=== PATIENT | male | born 1945 | race Caucasian/White ===

== ENCOUNTER 2017-04-26 13:00 | Outpatient (CLI) | payer MEDICARE ==
--- NOTE | 2017-04-26 14:04 | RAD ---
CHEST 2 VIEWS: Date: 04/26/17 HISTORY: Dyspnea. COMPARISON: 07/24/14. FINDINGS: Cardiac silhouette and pulmonary vasculature are unremarkable. Mediastinum is midline. There is no c onfluent air space consolidation, pneumothorax, or pleural fluid evident. IMPRESSION: No active cardiopulmonary abnormalities are demonstrated. POS: [facility]
== END 2017-04-26 13:01 | disposition home or self-care (01) ==
LOC: RAD 13:00
PROVIDERS: ATTEND Internal Medicine Pulmonary Disease
DX: R06.00 Dyspnea, unspecified (principal)
CPT/HCPCS: 71020

== ENCOUNTER 2017-06-06 20:30 | Outpatient (CLI) | payer MEDICARE | END 2017-06-06 20:31 | disposition home or self-care (01) | LOC: SLEEPLAB 20:30 | PROVIDERS: ATTEND Internal Medicine Critical Care Medicine | DX: G47.33 Obstructive sleep apnea (adult) (pediatric) (principal); G47.61 Periodic limb movement disorder; D75.1 Secondary polycythemia | CPT/HCPCS: 95811 ==

== ENCOUNTER 2017-07-27 12:40 | Emergency (ER) | payer MEDICARE ==
[~2017-07-27 12:40] MED LIST: Iopamidol 370 76% 100 ML VIAL ONE
[2017-07-27] MEDS ORDERED: Ondansetron HCl/PF 4 MG/2 ML Vial ONE (13:26)
[2017-07-27] MEDS ORDERED: Morphine 4 MG/ML Carpuject ONE (13:26)
[2017-07-27] MEDS ORDERED: Ketorolac Tromethamine 30 MG/ML VIAL ONE (13:38)
--- NOTE | 2017-07-27 13:40 | CT ---
NONCONTRAST HEAD CT: HISTORY: Syncope. COMPARISON: None. TECHNIQUE: A noncontrast head CT is performed from the skull base to the skull vertex. FINDINGS: No parenchymal hemorrhage. No extraaxial hematoma. No midline shift. The basilar cisterns are glez nt. Brain volume is age appropriate. Cortical mcneil white matter differentiation is preserved. The ventricles and sulci are patent and symmetric. The calvarium is intact. Adequate aeration of the mastoid air cells. Mild mucosal thickening of the left ethmoid air cells. IMPRESSION: No acute intracranial process. POS: [facility]
--- NOTE | 2017-07-27 13:49 | RAD ---
PORTABLE AP CHEST X-RAY: 07/27/2017 HISTORY: Syncopal episode. The patient fell and had positive loss of consciousness. COMPARISON: 04/26/2017 FINDINGS: The cardiac silhouette and pulmonary vasculature are within normal limits. The lungs are clear. Ther e has been no interval change when compared to the prior exam. IMPRESSION: No acute cardiopulmonary process. POS: [facility]
[2017-07-27 13:50] LABS: #Basophils 0.1 thou/uL (0.0-0.2); #Eosinphils 0.3 thou/uL (0.0-0.7); #Monocytes 0.6 thou/uL (0.11-0.59); #Neutrophils 8.2 thou/uL (1.40-6.50); %Basophils 0.8 % (0.0-1.0); %Eosinophils 2.5 % (0.0-10.0); %Lymphocytes 9.3 % (21.0-51.0); %Monocytes 6.3 % (0.0-10.0); Hemoglobin 13.8 g/dL (14.0-18.0); Mean Corpuscular HGB CONC 32.5 g/dL (32.0-36.0); Mean Corpuscular Hemoglobin 26.3 pg (27.0-31.0); Mean Corpuscular Volume 81.1 fl (80.0-94.0); Platelet Count 165 thou/uL (130-400); RBC Distribution Width 15.2 % (11.5-14.5); Red Blood Cell (RBC) Count 5.25 mill/uL (4.70-6.10); White Blood Cell (WBC) Count 10.2 thou/uL (4.8-10.8)
--- NOTE | 2017-07-27 13:56 | CT ---
NONCONTRAST CT CERVICAL SPINE: Date: 07-27-17 History: Patient with syncopal episode after procedure today. Patient also recently woke from a nap a nd fell. Positive LOC and hit head on edge of bed. Cervical collar in place. Technique: Contiguous axial CT images are obtained through the cervical spine from the skull base to the level of the T2 vertebral body. Sagittal and coronal reformat images are provided. FINDINGS: Prominent anterior bridging osteophytes are seen at the C4-5 and C5-6 levels. There is fusion of the right sided posterior elements at the C2-3 and C4-5 levels. Multilevel facet degenerative changes are present. Posterior osteophyte formation as well as uncinate process hypertrophy are seen at multiple levels. T here is mild to moderate bilateral neural foraminal narrowing at C2-3 level, mild to moderate right a nd severe left sided neural foraminal narrowing at C3-4, mild right sided neural foraminal narrowing at C4-5, moderate to severe right sided neural foraminal narrowing at the C5-6 and severe bilateral n eural foraminal narrowing at the C6-7 levels related to the degenerative changes and bony encroachmen t on the neural foramina. No fracture or subluxation is seen involving the cervical spine. There is mild straightening of the n ormal cervical lordotic curvature. Prevertebral soft tissues are within normal limits. Vascular calcifications are seen in the carotid a rteries. There are several calcifications seen within the right carotid gland, likely related to prior infecti ous or inflammatory process. The lung apices are clear with mild chronic lung changes present. IMPRESSION: 1. Multilevel degenerative changes in the cervical spine with varying degrees of neural foraminal nara rowing. 2. No fracture or subluxation involving the cervical spine. 3. Fusion of the posterior elements on the right at the C2-3 and C4-5 levels. POS: [facility]
[2017-07-27 14:07] LABS: ALT (SGPT) 32 U/L (8-55); AST (SGOT) 21 U/L (5-34); Albumin 3.7 g/dL (3.4-4.8); Alkaline Phosphatase 64 U/L (40-150); Anion Gap 13 mmol/L (10-20); BUN (Urea Nitrogen) 24 mg/dL (8.4-25.7); Bilirubin, Total 0.9 mg/dL (0.2-1.2); Calc. Creatinine Clearance 0 mL/min (70-130); Calcium 9.1 mg/dL (7.8-10.44); Carbon Dioxide 24 mmol/L (23-31); Chloride 105 mmol/L (98-107); Estimated GFR-MDRD 49; Globulin 2.5 g/dL (2.4-3.5); Glucose 141 mg/dL (83-110); Potassium 3.8 mmol/L (3.5-5.1); Protein, Total 6.2 g/dL (5.8-8.1); Sodium 138 mmol/L (136-145)
[2017-07-27 14:09] LABS: CKMB 3.1 ng/mL (0-6.6); Troponin I 0.019 ng/mL (< 0.028)
--- NOTE | 2017-07-27 14:57 | CT ---
CTA CHEST AND 3D VOLUME RENDERING: CLINICAL HISTORY: Syncope, elevated D-dimer. FINDINGS: There is no obvious filling defect of the contrast-opacified pulmonary arterial system. The thoracic aorta is nonaneurysmal with minimal vascular calcification. Scattered mild ground-glass opacities of each lung are present, nonspecific. There is no pleural eff usion or pneumothorax. Incidental note of cholelithiasis, incompletely evaluated. There is osseous degenerative change. IMPRESSION: 1. No evidence of pulmonary embolus. 2. Mild scattered nonspecific ground-glass opacities. Findings could relate to an area of mild alve olar opacification from atypical infection/inflammation or alternatively component of underlying fibr osis. Recommend clinical correlation. 3. Partial visualization of cholelithiasis. POS: [facility]
== END 2017-07-27 15:40 | disposition home or self-care (01) ==
LOC: SCSER 12:40
DX: R55 Syncope and collapse (principal); I10 Essential (primary) hypertension; Z87.442 Personal history of urinary calculi; Z79.82 Long term (current) use of aspirin; Z79.899 Other long term (current) drug therapy
CPT/HCPCS: 36415; 70450; 71045; 71275; 72125; 80053; 82553; 84484; 85025; 85379; 93005; 96361; 96374; 96375; J1885; J2270; J2405

== ENCOUNTER 2017-12-18 14:16 | Outpatient (CLI) | payer MEDICARE ==
[~2017-12-18 14:16] MED LIST changes: +Gadobenate Dimeglumine 529 MG/1 ML (20ML VIAL) ONE; -Iopamidol 370 76% 100 ML VIAL ONE
--- NOTE | 2017-12-18 17:10 | MRI ---
MRI CERVICAL SPINE WITHOUT CONTRAST: Date: 12/18/17 Multiplanar, multisequential imaging of cervical spine obtained. INDICATION: Neck pain. Cervical radiculopathy with bilateral arm pain. Comparison made to MRI of the cervical spine from April 2010. FINDINGS: There are moderate degenerative changes of the cervical spine. Loss of disc space at all levels with anterior osteophytes prominent at C4-5 and C5-6. There is mild retrolisthesis at C6-7 measured at deepthi roximately 3-4 mm, stable from the prior exam of 2009. At C2-3, mild spondylosis effacing the anterior subarachnoid space. No cord impingement. At C3-4, disc bulge and spondylosis is present, more pronounced to the left where there is asymmetric spondylytic change impinging on the anterior cord on the left and encroaching into the left foramina . Similar findings were present in 2009. At C4-5, disc bulge and spondylosis abut the anterior cord. There is a central disc osteophyte comple x impinging on and mildly flattening the anterior cord. Similar findings were also noted at this leve l in 2010. There is right foraminal narrowing due to facet and uncinate hypertrophy. At C5-6, disc bulge and spondylosis abuts and mildly indents the anterior cord. Bilateral foraminal n arrowing, more severe on the right, due to facet and uncinate hypertrophy. At C6-7, mild retrolisthesis with diffuse disc bulge and spondylosis as described above. This impinge s on the cord producing slight flattening of the anterior cord. Bilateral foraminal stenosis secondar y to facet and uncinate hypertrophy. Cord signal is maintained with no evidence of myelomalacia. IMPRESSION: Multilevel degenerative disc changes with cervical canal stenosis C3 through C7, with findings at eac h level described above. POS: [facility]
--- NOTE | 2017-12-18 17:24 | MRI ---
MRI LUMBAR SPINE WITHOUT CONTRAST: 12/18/17 Multiplanar and multisequential imaging lumbar spine obtained. INDICATIONS: Lumbar radiculopathy. Prior lumbar surgery. Radiation to left leg. Comparison made to MRI of lumbar spine of 09/05/16. FINDINGS: The lumbar vertebrae maintain height and alignment. Degenerative disc changes seen at all levels with loss of disc space throughout the lumbar spine. Prominent osteophytes are seen anteriorly. Degenerat elaine end plate changes are noted. Disc bulge/protrusion at multiple levels as described below. Similar findings were noted on the MRI of lumbar spine from 2017. At T12-L1, mild disc bulge flattens the thecal sac. Mild facet arthrosis without significant central canal or foraminal stenosis. At L1-2, mild disc bulge and facet arthrosis without significant central canal or foraminal stenosis. At L2-3, broad based disc protrusion, more pronounced centrally with slight inferior extension of dis c material. Has a similar appearance to 2017. The inferiorly migrated disc just inferior to this disc space measures 1.0 cm AP dimension in the axial plane. This broad based protrusion flattens the thec al sac and is combined with mild facet hypertrophy resulting in moderate central canal stenosis. Mild foraminal encroachment due to the broad based disc bulge and facet hypertrophy. Disc osteophyte comp lópez projects laterally to the left. At L3-4, broad based disc bulge flattens the thecal sac. Facet and ligamentous hypertrophy. Moderate central canal stenosis. At L4-5, diffuse disc bugle/protrusion with evidence of annular fissure within the disc. Facet hypert rophy. Moderate central canal stenosis. Bilateral foraminal narrowing due to diffuse disc bulge and f acet hypertrophy. At L5-S1, broad based disc protrusion with annular fissure. Facet hypertrophy. Moderate central canal stenosis. Bilateral foraminal stenosis. IMPRESSION: Broad based disc protrusions at all levels from L2 to L5-S1 which have a similar appearance to the pr ior MRI of 2017. Central canal and foraminal encroachment at these levels as described above. POS: [facility]
== END 2017-12-18 14:17 | disposition home or self-care (01) ==
LOC: TBSIIMAG 14:16
PROVIDERS: ATTEND Neurological Surgery
DX: M48.02 Spinal stenosis, cervical region (principal); M47.22 Other spondylosis with radiculopathy, cervical region; M51.17 Intervertebral disc disorders with radiculopathy, lumbosacral region
CPT/HCPCS: 72141; 72158; 82565; A9579

== ENCOUNTER 2018-01-30 09:10 | Outpatient (CLI) | payer MEDICARE ==
[2018-01-30 10:51] LABS: Hemoglobin 15.8 g/dL (14.0-18.0); Mean Corpuscular HGB CONC 31.8 g/dL (32.0-36.0); Mean Corpuscular Hemoglobin 27.4 pg (27.0-31.0); Mean Corpuscular Volume 86.1 fL (78.0-98.0); Mean Platelet Volume 8.5 fL (7.4-10.4); Platelet Count 188 thou/uL (130-400); RBC Distribution Width 14.8 % (11.5-14.5); Red Blood Cell (RBC) Count 5.79 mill/uL (4.70-6.10); White Blood Cell (WBC) Count 6.4 thou/uL (4.8-10.8)
[2018-01-30 11:18] LABS: Anion Gap 11 mmol/L (10-20); BUN (Urea Nitrogen) 12 mg/dL (8.4-25.7); Calc. Creatinine Clearance 0 mL/min (70-130); Calcium 9.6 mg/dL (7.8-10.44); Carbon Dioxide 27 mmol/L (23-31); Chloride 104 mmol/L (98-107); Estimated GFR-MDRD 65; Glucose 90 mg/dL (83-110); Potassium 4.7 mmol/L (3.5-5.1); Sodium 137 mmol/L (136-145)
--- NOTE | 2018-01-31 13:58 | EKG ---
Test Reason : Blood Pressure : / mmHG Vent. Rate : 064 BPM Atrial Rate : 064 BPM P-R Int : 202 ms QRS Dur : 100 ms QT Int : 368 ms P-R-T Axes : 047 021 047 degrees QTc Int : 379 ms Normal sinus rhythm Possible Anterior infarct , age undetermined Abnormal ECG Confirmed by MARIA ANTONIA BENOIT ([id number]) on 01/31/2018 1:57:27 PM Referred By: ROM Confirmed By:MARIA ANTONIA BENOIT
== END 2018-01-30 09:11 | disposition home or self-care (01) ==
LOC: LABBT 09:10
PROVIDERS: ATTEND Neurological Surgery
DX: Z01.818 Encounter for other preprocedural examination (principal); M51.16 Intervertebral disc disorders with radiculopathy, lumbar region
CPT/HCPCS: 80048; 85027; 93005; 93010

== ENCOUNTER 2018-05-13 19:19 | Emergency (ER) | payer MEDICARE ==
[2018-05-13 20:34] LABS: #Basophils 0.1 thou/uL (0.0-0.2); #Eosinphils 1.1 thou/uL (0.0-0.7); #Lymphocytes 1.7 thou/uL (1.20-3.40); #Monocytes 0.6 thou/uL (0.11-0.59); #Neutrophils 3.2 thou/uL (1.40-6.50); %Basophils 1.3 % (0.0-1.0); %Eosinophils 16.7 % (0.0-10.0); %Lymphocytes 25.1 % (21.0-51.0); %Monocytes 8.2 % (0.0-10.0); %Neutrophils 48.7 % (42.0-75.0); Hemoglobin 14.7 g/dL (14.0-18.0); Mean Corpuscular HGB CONC 31.5 g/dL (32.0-36.0); Mean Corpuscular Hemoglobin 25.1 pg (27.0-31.0); Mean Corpuscular Volume 79.8 fL (78.0-98.0); Mean Platelet Volume 10.7 fL (7.4-10.4); Platelet Count 164 thou/uL (130-400); Red Blood Cell (RBC) Count 5.85 mill/uL (4.70-6.10); White Blood Cell (WBC) Count 6.6 thou/uL (4.8-10.8)
[2018-05-13 20:47] LABS: ALT (SGPT) 36 U/L (8-55); AST (SGOT) 30 U/L (5-34); Albumin 4.5 g/dL (3.4-4.8); Alkaline Phosphatase 75 U/L (40-150); Anion Gap 16 mmol/L (10-20); BUN (Urea Nitrogen) 14 mg/dL (8.4-25.7); Bilirubin, Total 0.7 mg/dL (0.2-1.2); Calc. Creatinine Clearance 0 mL/min (70-130); Calcium 9.5 mg/dL (7.8-10.44); Carbon Dioxide 24 mmol/L (23-31); Chloride 105 mmol/L (98-107); Estimated GFR-MDRD 68; Glucose 104 mg/dL (83-110); Lipase 24 U/L (8-78); Potassium 4.5 mmol/L (3.5-5.1); Protein, Total 7.5 g/dL (5.8-8.1); Sodium 140 mmol/L (136-145)
--- NOTE | 2018-05-13 22:49 | CT ---
CT ABDOMEN AND PELVIS WITH IV CONTRAST: 05/13/2018 HISTORY: Left lower quadrant abdominal pain for four days. Blood in stool and dark stools. COMPARISON: 09/20/2016 FINDINGS: Minimal bibasilar atelectasis is present. An increased density focus is again seen within the gallbladder, likely related to cholelithiasis. T here are stable, irregular calcific densities seen within the left hepatic lobe, stable from prior ex am, as well as a study on 12/19/2014. There is an approximately 3 mm, nonobstructing calculus, mid portion left kidney. Stable subcentimet er, xqc-[id number]-hf-characterize, hypodense lesions are also again seen in each kidney. There is a stab le cyst in the inferior pole right kidney. The spleen, pancreas, bilateral adrenal glands, and partially distended urinary bladder demonstrate a normal CT appearance. There is colonic diverticulosis noted. The opacified small bowel is normal in caliber. The appendix is visualized and is normal in caliber. The prostate gland is heterogeneous and enlarged in transverse dimensions, measuring 5.5 cm. Again noted is evidence of osteonecrosis involving the femoral heads bilaterally. There has been no significant interval change from the prior exam. IMPRESSION: 1. No acute findings in the abdomen or pelvis. 2. Cholelithiasis. 3. Nonobstructing left renal calculus with subcentimeter, vkv-[id number]-hm-characterize, hypodense lesio ns in each kidney, as well as stable right renal cysts. 4. Colonic diverticulosis with enumerable colonic diverticula in the descending and sigmoid colon. 5. No CT evidence of appendicitis. 6. Prominent vascular calcifications in the abdominal aorta and iliac arteries. 7. Enlargement of the prostate gland, which is heterogeneous in appearance. 8. Stable osteonecrosis, bilateral femoral heads. 9. Prominent degenerative changes in the lumbar spine with posterior osteophyte formation seen at mu ltiple levels with moderate to severe degrees of central spinal canal narrowing. POS: [facility]
== END 2018-05-13 23:10 | disposition home or self-care (01) ==
LOC: SCSER 19:19
DX: K92.1 Melena (principal); I25.10 Atherosclerotic heart disease of native coronary artery without angina pectoris; I10 Essential (primary) hypertension; Z87.442 Personal history of urinary calculi
CPT/HCPCS: 36415; 74177; 80053; 83605; 83690; 85025

== ENCOUNTER 2018-07-25 05:38 | Outpatient (CLI) | payer MEDICARE ==
[2018-07-25 09:38] LABS: #Basophils 0.1 thou/uL (0.0-0.2); #Eosinphils 1.3 thou/uL (0.0-0.7); #Lymphocytes 1.6 thou/uL (1.20-3.40); #Monocytes 0.7 thou/uL (0.11-0.59); #Neutrophils 2.5 thou/uL (1.40-6.50); %Basophils 1.6 % (0.0-1.0); %Eosinophils 21.2 % (0.0-10.0); %Lymphocytes 25.9 % (21.0-51.0); %Monocytes 10.6 % (0.0-10.0); %Neutrophils 40.6 % (42.0-75.0); Hemoglobin 15.5 g/dL (14.0-18.0); Mean Corpuscular HGB CONC 31.9 g/dL (32.0-36.0); Mean Corpuscular Hemoglobin 26.5 pg (27.0-31.0); Mean Corpuscular Volume 83.3 fL (78.0-98.0); Mean Platelet Volume 8.9 fL (7.4-10.4); Platelet Count 206 thou/uL (130-400); RBC Distribution Width 16.8 % (11.5-14.5); Red Blood Cell (RBC) Count 5.84 mill/uL (4.70-6.10); White Blood Cell (WBC) Count 6.3 thou/uL (4.8-10.8)
[2018-07-25 09:44] LABS: Bilirubin Negative (Negative); Blood, Urine Negative (Negative); Clarity CLEAR (Clear); Glucose, Urine (Dipstick) Negative (Negative); Leukocyte Negative (Negative); Nitrite Negative (Negative); Protein, Urine (Dipstick) Negative (Neg-Trace); Specific Gravity, Urine 1.021 (1.002-1.036); Urobilinogen 0.2 mg/dL (0.2-1.0); pH, Urine 5.5 (5.0-9.0)
[2018-07-25 09:46] LABS: Bacteria/HPF None Seen HPF (None Seen); Hyaline Casts/LPF 0-3 HYALINE CAST LPF (0-3 Hyaline); INR-International Normal Ratio 1.1; PTT 29.9 SEC (22.9-36.1); Prothrombin Time 13.9 SEC (12.0-14.7); Squamous Epithelial None Seen HPF (0-3); WBC/HPF 0-3 HPF (0-3)
[2018-07-25 09:57] LABS: Anion Gap 14 mmol/L (10-20); BUN (Urea Nitrogen) 13 mg/dL (8.4-25.7); Calc. Creatinine Clearance 0 mL/min (70-130); Calcium 9.5 mg/dL (7.8-10.44); Carbon Dioxide 23 mmol/L (23-31); Chloride 107 mmol/L (98-107); Estimated GFR-MDRD 72; Glucose 94 mg/dL (83-110); Sodium 140 mmol/L (136-145)
== END 2018-07-25 05:39 | disposition home or self-care (01) ==
LOC: LABBT 05:38
PROVIDERS: ATTEND Orthopaedic Surgery
DX: Z01.818 Encounter for other preprocedural examination (principal); M16.11 Unilateral primary osteoarthritis, right hip
CPT/HCPCS: 80048; 81001; 85025; 85610; 85730; 87081; 93005; 93010

== ENCOUNTER 2018-07-25 08:45 | Inpatient (IN) | payer MEDICARE ==
[2018-07-25 09:02] VITALS: BMI 29.0
--- NOTE | 2018-08-01 14:40 | HP ---
HISTORY OF PRESENT ILLNESS: The patient is a 73-year-old male with a long history of progressive pain in his right hip and groin, which has become worse over the past years, especially the past six months. He has had persistent symptoms despite rest, restriction of activities, anti-inflammatory medications and lifestyle adjustments. The pain is now interfering with day-to-day activities including walking, getting dressed and sleeping. PAST MEDICAL HISTORY: The patient has a history of chronic back problems and has been told by Dr. Anderson he may need surgery. His hip is bothering him more. He has obtained partial relief from injections of his back by Dr. Byrnes. He also has a history of hyperlipidemia, hypertension, prostatitis, and sleep apnea. CURRENT MEDICATIONS: Include: 1. Fish oil. 2. Glucosamine. 3. Saw palmetto. 4. Probiotic. 5. Testosterone. 6. Melatonin. 7. Multivitamins. 8. Aspirin 81 mg daily. 9. Flomax. 10. Losartan. 11. Lipitor. He has been seen and cleared for surgery by . ALLERGIES: HE HAS NO KNOWN ALLERGIES. FAMILY HISTORY: Otherwise unremarkable. SOCIAL HISTORY: Otherwise unremarkable. REVIEW OF SYSTEMS: Otherwise unremarkable. PHYSICAL EXAMINATION: GENERAL: Reveals a healthy male. HEENT: Unremarkable. NECK: Supple. CHEST: Clear. HEART: Regular rate and rhythm. ABDOMEN: Soft, nontender. RECTAL: Deferred. GENITAL: Deferred. EXTREMITIES: Pertinent findings are related to right hip. There is tenderness in the anterior and posterior hip. Leg lengths were equal. There is decreased range of motion of the right hip and groin pain with internal rotation of the hip, which reproduces his symptoms. There is a right antalgic gait. NEUROVASCULAR: Intact except for subjective numbness in the medial aspect of his great toe. Straight leg raising causes back and buttock pain on the right at 90 degrees. DIAGNOSTIC STUDIES: X-rays of the right hip reveals severe degenerative changes with minimal joint space remaining and definite progression from previous x-rays. IMPRESSION: 1. Degenerative arthritis, right hip. 2. Lumbar spondylosis. 3. History of hypertension. 4. History of sleep apnea. PLAN: Right total hip replacement. The nature of the surgery, length of recovery, and potential complications such as infection, loss of motion, incomplete relief, neurovascular injury, thromboembolic phenomenon, leg length discrepancy, possible transfusion, and need for revision have been discussed in detail. Job ID: [id number]
[2018-08-05] MEDS ORDERED: CEFAZOLIN 2 GM/50 ML BAG ONE ×2 (06:00→06:01)
[2018-08-05] MEDS ORDERED: Sodium Chloride 0.9% 100 ML ONE (06:00)
[2018-08-05] MEDS ORDERED: Tranexamic Acid 1,000 MG/10 ML VIAL ONE ×2 (06:00→09:23)
[2018-08-05] MEDS ORDERED: Vancomycin HCl 1.5 GM in Sodium Chloride 0.9% 250 ML 300 ML IVPB ONE (06:15)
[2018-08-05] MEDS ORDERED: Midazolam HCl 2 mg/2 ml Vial ONE (06:24)
[2018-08-05] MEDS ORDERED: Fentanyl 100 MCG/2 ML VIAL ONE ×3 (06:24→09:49)
[2018-08-05] MEDS ORDERED: Promethazine HCl 25 MG/ML VIAL IM PRN ×2 (07:15→11:57)
[2018-08-05] MEDS ORDERED: Zolpidem Tartrate 5 MG TAB PO PRN ×2 (07:15→10:01)
[2018-08-05] MEDS ORDERED: diphenhydrAMINE 50 MG/ML VIAL IVP PRN (07:15)
[2018-08-05] MEDS ORDERED: Hydrocerin (Eucerin) Cream 120 gm Jar TOP PRN (07:15)
[2018-08-05] MEDS ORDERED: Ondansetron PF 4 MG/2 ML Vial IVP PRN ×2 (07:15→10:01)
[2018-08-05] MEDS ORDERED: Bupivacaine 0.25% 10 ML VIAL EPIDURAL PRN (07:15)
[2018-08-05] MEDS ORDERED: diphenhydrAMINE 50 MG/ML VIAL IM PRN (07:15)
[2018-08-05] MEDS ORDERED: Naloxone HCl 0.4 mg/ml Vial IVP PRN (07:15)
[2018-08-05] MEDS ORDERED: traMADol HCl 50 MG TAB PO PRN ×3 (07:15→10:01)
[2018-08-05] MEDS ORDERED: HYDROcodone/Acetaminophen 5/325 mg Tablet PO PRN (07:15)
[2018-08-05] MEDS ORDERED: Promethazine HCl 25 MG SUPP PR PRN (07:15)
[2018-08-05] MEDS ORDERED: Naloxone HCl 0.4 mg/ml Vial IV PRN (07:15)
[2018-08-05] MEDS ORDERED: Bupivacaine 0.25% HCL 30 ML VIAL ONE (07:47)
[2018-08-05] MEDS ORDERED: Fentanyl/Bupivacaine 100 ML EPIDURAL ONE (09:29)
[2018-08-05] MEDS ORDERED: Tranexamic Acid 1,000 MG in Sodium Chloride 0.9% 100 ML IVPB SCH ×2 (09:30→10:01)
[2018-08-05] MEDS ORDERED: Multivitamin W/ Minerals 1 TAB PO SCH ×2 (10:01→11:00)
[2018-08-05] MEDS ORDERED: diphenhydrAMINE 25 MG CAP PO PRN (10:01)
[2018-08-05] MEDS ORDERED: Acetaminophen 325 MG TAB PO PRN (10:01)
[2018-08-05] MEDS ORDERED: Fentanyl 100 MCG/2 ML VIAL SLOW IVP PRN ×2 (10:01)
[2018-08-05] MEDS ORDERED: Ferrous Gluconate 324 MG TAB PO SCH ×2 (10:01→11:00)
[2018-08-05] MEDS ORDERED: HYDROcodone/Acetaminophen 10/325 mg Tablet PO PRN ×2 (10:01)
[2018-08-05] MEDS ORDERED: CEFAZOLIN/Water 2 GM/20 ML SYRINGE SLOW IVP SCH (10:01)
[2018-08-05] MEDS ORDERED: Promethazine HCl 25 MG/ML VIAL SLOW IVP PRN ×2 (10:01→11:57)
[2018-08-05] MEDS ORDERED: Aspirin 81 mg Enteric Coated Tablet PO SCH ×2 (10:01→11:00)
[2018-08-05] MEDS ORDERED: Senokot S 8.6-50 MG TAB PO SCH ×2 (10:01→11:00)
[2018-08-05] MEDS ORDERED: Vancomycin HCl 1.5 GM in Sodium Chloride 0.9% 250 ML 300 ML IVPB SCH (10:01)
--- NOTE | 2018-08-05 10:06 | RAD ---
RIGHT HIP TWO VIEWS: History: Post op total hip. FINDINGS: Right total hip replacement with evidence of dislocation or periprosthetic fracture. IMPRESSION: Unremarkable recent post op total hip. POS: [facility]
[2018-08-05] MEDS ORDERED: Anastrozole 1 MG TAB PO SCH (11:00)
--- NOTE | 2018-08-05 11:56 | OP ---
DATE OF PROCEDURE: 08/05/2018 SAND TEMPERER: Leidy Hawk PA-C ANESTHESIA: General plus epidural. PREOPERATIVE DIAGNOSIS: Degenerative arthritis, right hip. POSTOPERATIVE DIAGNOSIS: Degenerative arthritis PROCEDURE PERFORMED: Right total hip replacement with uncemented [place] Trident PSL acetabular component 54 mm and uncemented [place] Accolade femoral stem #4 132-degree neck angle trunnion and 36 mm standard neck length delta ceramic femoral head. DESCRIPTION OF PROCEDURE: After report of satisfactory anesthesia was induced in supine position, sequential compression devices were placed on the nonoperative leg throughout the procedure. The patient was placed in left decubitus position. This position held with hip positioning device. The patient's right hip was then prepped and draped in routine sterile fashion. The hip was approached through a lateral curvilinear incision centered over the greater trochanter, carried down through the subcutaneous tissues and bleeding points were controlled with Bovie cautery. IT-band and gluteal fascia were split in line with the skin incision. A direct lateral approach to the hip prominence was accomplished by dividing the anterior 3rd of the gluteus medius and minimus tendons reflecting this as a single flap anteriorly and medially along with the vastus lateralis. Anterior capsulectomy was performed and the hip was dislocated anteriorly. There was marked degenerative arthritis in the hip with large areas of exposed bone. The femoral neck was osteotomized with an oscillating saw using a trial prosthesis as a guide. The acetabulum was exposed and cleared of all soft tissue and debris. It was then reamed in sequence with prior reamers down to bleeding subchondral bone to a total of 54 mm. It was felt that a 54 mm trident PSL outer shell could be placed in a press-fit fashion. The permanent outer shell was hammered in position. There was good stability at the outer rim. The distal screw fixation was necessary. The permanent X3 polyethylene insert was then placed and the proximal femur was exposed. It was opened with a box osteotome and rasped in sequence to accept a #4 Accolade femoral rasp. Trial reduction with 132 degree neck angle trunnion and the standard 36 mm neck length femoral head gave appropriate size, fit, and stability. The hip was again dislocated anteriorly and the trial components were removed. The permanent #4 Accolade femoral stem was hammered into position. There was good, fit, and stability of the stem and permanent 36 mm delta ceramic standard neck length femoral head was placed on the trunnion. The hip again reduced and found to be stable. The hip was copiously irrigated with pulsatile lavage. The abductors were repaired with interrupted #2 Vicryl. IT-band and gluteal fascia were closed with interrupted #2 Vicryl and a running #2 Quill. Subcutaneous tissues were closed with a running 0 Quill suture, and the skin was closed with running subcuticular 3-0 Monoderm and SurgiSeal skin adhesive. Sterile dressing was applied. The patient was turned to supine position. A pillow was placed between his legs and sequential compression device was placed on his operative leg. He was awakened, taken to the recovery room in stable condition. There were no apparent intraoperative complications. The estimated blood loss was 250 mL. Job ID: [id number]
[2018-08-05] MEDS ORDERED: Ondansetron HCl/PF 4 MG/2 ML Vial IVP PRN (11:57)
[2018-08-05] MEDS: Ketorolac Tromethamine 30 MG/ML VIAL IVP SCH ×3 (12:00→23:48)
[2018-08-05] MEDS: Sodium Chloride 0.9% 1,000 ML IV SCH ×2 (12:08→20:34)
[2018-08-05] MEDS: CEFAZOLIN 2 GM/50 ML-DEXTROSE 2 GM in Premix Bag 1 BAG IVPB SCH ×2 (13:37→21:37)
[2018-08-05] MEDS ORDERED: Ondansetron PF 4 MG/2 ML Vial ONE (16:56)
[2018-08-05] MEDS ORDERED: PROPOFOL 200 MG/20 ML VIAL ONE (16:56)
[2018-08-05] MEDS ORDERED: Lidocaine 1% PF 5 ML VIAL ONE (16:56)
[2018-08-05] MEDS ORDERED: Rocuronium Bromide 10 MG/ML (10ML VIAL) ONE (16:56)
[2018-08-05] MEDS ORDERED: ePHEDrine/0.9% NaCl/PF SYRINGE 50 mg/10 ml ONE (16:56)
[2018-08-05] MEDS ORDERED: Glycopyrrolate 0.2 MG/ML 5 ML SYRINGE ONE (16:56)
[2018-08-05] MEDS ORDERED: PHENYLEPHRINE-NS 100 MCG/ML 10 ML SYRINGE ONE (16:56)
[2018-08-05] MEDS: Aspirin 81 mg Enteric Coated Tablet PO SCH (20:35)
[2018-08-05] MEDS: Tamsulosin HCl 0.4 MG CAP PO SCH (20:35)
[2018-08-05] MEDS: Senokot S 8.6-50 MG TAB PO SCH (20:35)
[2018-08-05] MEDS: Ferrous Gluconate 324 MG TAB PO SCH (20:35)
[2018-08-05] MEDS: Melatonin 3 MG TAB PO SCH (20:36)
[2018-08-05] MEDS: diphenhydrAMINE 25 MG CAP PO PRN (20:44)
[2018-08-05] MEDS: Fentanyl/Bupivacaine 100 ML EPIDURAL SCH (23:48)
[2018-08-06] MEDS: Ketorolac Tromethamine 30 MG/ML VIAL IVP SCH ×4 (05:33→23:25)
[2018-08-06] MEDS: Sodium Chloride 0.9% 1,000 ML IV SCH ×2 (05:35→16:47)
[2018-08-06 06:40] LABS: Hemoglobin 12.3 g/dL (14.0-18.0); Mean Corpuscular HGB CONC 32.2 g/dL (32.0-36.0); Mean Corpuscular Hemoglobin 26.8 pg (27.0-31.0); Mean Corpuscular Volume 83.3 fL (78.0-98.0); Mean Platelet Volume 8.5 fL (7.4-10.4); Platelet Count 177 thou/uL (130-400); RBC Distribution Width 16.1 % (11.5-14.5); Red Blood Cell (RBC) Count 4.59 mill/uL (4.70-6.10); White Blood Cell (WBC) Count 8.3 thou/uL (4.8-10.8)
[2018-08-06] MEDS: Senokot S 8.6-50 MG TAB PO SCH ×2 (08:28→20:55)
[2018-08-06] MEDS: HYDROcodone/Acetaminophen 5/325 mg Tablet PO PRN ×2 (08:29→17:51)
[2018-08-06] MEDS: Ferrous Gluconate 324 MG TAB PO SCH ×2 (08:29→20:55)
[2018-08-06] MEDS: Multivitamin W/ Minerals 1 TAB PO SCH (08:31)
[2018-08-06] MEDS: Aspirin 81 mg Enteric Coated Tablet PO SCH ×2 (11:22→20:55)
[2018-08-06] MEDS: Fentanyl/Bupivacaine 100 ML EPIDURAL SCH (16:23)
[2018-08-06] MEDS: diphenhydrAMINE 25 MG CAP PO PRN (20:54)
[2018-08-06] MEDS: Tamsulosin HCl 0.4 MG CAP PO SCH (20:54)
[2018-08-06] MEDS: Melatonin 3 MG TAB PO SCH (20:59)
[2018-08-06] MEDS ORDERED: Losartan 25 MG TAB PO SCH (21:00)
[2018-08-07] MEDS: Sodium Chloride 0.9% 1,000 ML IV SCH ×2 (04:11→15:00)
[2018-08-07] MEDS: Ketorolac Tromethamine 30 MG/ML VIAL IVP SCH ×2 (05:29→15:00)
[2018-08-07] MEDS: Aspirin 81 mg Enteric Coated Tablet PO SCH (07:39)
[2018-08-07] MEDS: Ferrous Gluconate 324 MG TAB PO SCH (07:39)
[2018-08-07] MEDS: Senokot S 8.6-50 MG TAB PO SCH (07:39)
[2018-08-07] MEDS: Multivitamin W/ Minerals 1 TAB PO SCH (07:39)
[2018-08-07] MEDS ORDERED: HYDROcodone/Acetaminophen 10/325 mg Tablet PO PRN (10:06)
[2018-08-07] MEDS: HYDROcodone/Acetaminophen 10/325 mg Tablet PO PRN ×2 (10:13→11:29)
[2018-08-07 12:03] VITALS: BP 172/78; TEMP 98.4
[2018-08-08] MEDS ORDERED: Anastrozole 1 MG TAB PO SCH (09:00)
== END 2018-08-07 15:44 | disposition home or self-care (01) | DRG 470 ==
LOC: SURG A 08-05 05:32 → SJJU 08-05 10:46
PROVIDERS: ADMIT Orthopaedic Surgery; ATTEND Orthopaedic Surgery
PROC: 0SR904A Replacement of Right Hip Joint with Ceramic on Polyethylene Synthetic Substitute, Uncemented, Open Approach (ICD-10-PCS; principal; 2018-08-05)
DX: M16.11 Unilateral primary osteoarthritis, right hip (principal); E78.5 Hyperlipidemia, unspecified; I10 Essential (primary) hypertension; G47.30 Sleep apnea, unspecified; M47.816 Spondylosis without myelopathy or radiculopathy, lumbar region; Z79.82 Long term (current) use of aspirin; Z79.899 Other long term (current) drug therapy
CPT/HCPCS: 36415; 85027; 96372; J1885; J2001; J2250; J2405; J2704; J3010; J3370; J7050; J8540; S0020

== ENCOUNTER 2018-07-30 16:10 | Outpatient (CLI) | payer MEDICARE | END 2018-07-30 16:11 | disposition home or self-care (01) | LOC: LABBT 16:10 | PROVIDERS: ATTEND Orthopaedic Surgery | DX: Z01.812 Encounter for preprocedural laboratory examination (principal); M16.11 Unilateral primary osteoarthritis, right hip | CPT/HCPCS: 86850; 86900; 86901 ==

== ENCOUNTER 2018-08-02 07:34 | Emergency (ER) | payer MEDICARE ==
[2018-08-02] MEDS ORDERED: Ketorolac Tromethamine 30 MG/ML VIAL ONE (08:48)
[2018-08-02] MEDS ORDERED: Dexamethasone 4 MG TAB ONE (08:48)
== END 2018-08-02 09:08 | disposition home or self-care (01) ==
LOC: ERS 07:34
DX: M54.16 Radiculopathy, lumbar region (principal); I25.10 Atherosclerotic heart disease of native coronary artery without angina pectoris; I10 Essential (primary) hypertension; Z87.442 Personal history of urinary calculi; Z79.82 Long term (current) use of aspirin; Z79.899 Other long term (current) drug therapy
CPT/HCPCS: J1885; J8540

== ENCOUNTER 2019-07-28 08:26 | Outpatient (CLI) | payer MEDICARE ==
--- NOTE | 2019-07-28 10:04 | CT ---
CT Abdomen Pelvis W Con History: Helicobacter pylori infection. Comparison: CT abdomen pelvis April 2018 Findings: Lung bases are clear. No pericardial effusion. Peripheral area of calcifications within hep atic segment 2. There is cholelithiasis without evidence of cholecystitis. Portal vein is patent. Spleen is unremarkable. Pancreas is unremarkable. There is a cyst which is exophytic interpolar right kidney. Moderate vascular plaque of the aorta. Normal proximal small bowel rotation. Small hypodensity superior pole left kidney also is similar to the comparison examination, likely a cyst. Prostate is enlarged. Moderate diverticular disease sigmoid colon without active current inflammation . The appendix is visualized and appears normal. High-grade degenerative disc disease throughout the aviva mbar spine with multilevel posterior disc osteophyte complexes causing neural foraminal and spinal canal narrowing. Impression: 1. No acute inflammatory process within the abdomen or pelvis. 2. Cholelithiasis without cholecystitis. 3. Similar appearance punctate interpolar left renal calculus. 4. Large right renal cyst.
== END 2019-07-28 08:27 | disposition home or self-care (01) ==
LOC: SCSCT 08:26
PROVIDERS: ATTEND Internal Medicine Gastroenterology
DX: R10.32 Left lower quadrant pain (principal); R14.3 Flatulence; R14.2 Eructation; R14.1 Gas pain; R14.0 Abdominal distension (gaseous); A04.8 Other specified bacterial intestinal infections; K80.20 Calculus of gallbladder without cholecystitis without obstruction; N28.1 Cyst of kidney, acquired; N20.0 Calculus of kidney
CPT/HCPCS: 74177; 82565

== ENCOUNTER 2021-01-19 12:31 | Outpatient (CLI) | payer MEDICARE | END 2021-01-19 12:32 | disposition home or self-care (01) | LOC: TBSIIMAG 12:31 | PROVIDERS: ATTEND Neurological Surgery | DX: M48.02 Spinal stenosis, cervical region (principal); R20.0 Anesthesia of skin; M51.36 Other intervertebral disc degeneration, lumbar region; M48.062 Spinal stenosis, lumbar region with neurogenic claudication; M51.26 Other intervertebral disc displacement, lumbar region; M50.30 Other cervical disc degeneration, unspecified cervical region | CPT/HCPCS: 72141; 72148 ==

== ENCOUNTER 2022-06-18 15:05 | Emergency (ER) | payer MEDICARE ==
[~2022-06-18 15:05] MED LIST changes: -Gadobenate Dimeglumine 529 MG/1 ML (20ML VIAL) ONE; +Iopamidol-370 76% 500 ML 1 ML ONE
[2022-06-18 15:44] LABS: #Basophils 0.1 thou/uL (0.0-0.2); #Lymphocytes 1.3 thou/uL (1.20-3.40); #Monocytes 0.6 thou/uL (0.11-0.59); %Basophils 0.8 % (0.0-1.0); %Eosinophils 12.6 % (0.0-10.0); %Lymphocytes 16.6 % (21.0-51.0); %Monocytes 7.5 % (0.0-10.0); %Neutrophils 62.4 % (42.0-75.0); Hemoglobin 15.5 g/dL (14.0-18.0); Mean Corpuscular HGB CONC 32.9 g/dL (32.0-36.0); Mean Corpuscular Hemoglobin 29.6 pg (27.0-31.0); Mean Corpuscular Volume 89.8 fl (78.0-98.0); Mean Platelet Volume 8.9 fL (7.4-10.4); Platelet Count 199 10x3/uL (130-400); RBC Distribution Width 16.4 % (11.5-14.5); Red Blood Cell (RBC) Count 5.22 mill/uL (4.70-6.10)
[2022-06-18 15:56] LABS: Bilirubin Negative (Negative); Blood, Urine Negative (Negative); Clarity Clear (Clear); Glucose, Urine (Dipstick) Normal (Negative); Ketone, Urine Trace mg/dL (Negative); Leukocyte Negative Leu/uL (Negative); Nitrite Negative (Negative); Protein, Urine (Dipstick) 10 mg/dL (Neg-Trace); Specific Gravity, Urine 1.026 (1.002-1.036); Urobilinogen Normal mg/dL (Less than 2)
[2022-06-18 15:59] LABS: Prothrombin Time 13.5 sec (12.0-14.7)
[2022-06-18 16:00] LABS: PTT 28.4 sec (22.9-36.1)
[2022-06-18 16:06] LABS: ALT (SGPT) 34 U/L (8-55); AST (SGOT) 29 U/L (5-34); Albumin 4.4 g/dL (3.4-4.8); Alkaline Phosphatase 88 U/L (40-110); Anion Gap 11 mmol/L (10-20); BUN (Urea Nitrogen) 24 mg/dL (8.4-25.7); Bilirubin, Total 1.1 mg/dL (0.2-1.2); Calc. Creatinine Clearance 0 mL/min (70-130); Calcium 9.7 mg/dL (7.8-10.44); Carbon Dioxide 27 mmol/L (23-31); Chloride 104 mmol/L (98-107); Estimated GFR 69; Globulin 3.3 g/dL (2.4-3.5); Glucose 113 mg/dL (83-110); Potassium 4.2 mmol/L (3.5-5.1); Protein, Total 7.7 g/dL (5.8-8.1); Sodium 138 mmol/L (136-145)
== END 2022-06-18 20:20 | disposition home or self-care (01) ==
LOC: ERS 15:05
DX: K57.90 Diverticulosis of intestine, part unspecified, without perforation or abscess without bleeding (principal); E11.9 Type 2 diabetes mellitus without complications; I10 Essential (primary) hypertension; Z79.899 Other long term (current) drug therapy; Z79.84 Long term (current) use of oral hypoglycemic drugs; Z79.82 Long term (current) use of aspirin
CPT/HCPCS: 36415; 74177; 80053; 81003; 85025; 85610; 85730; 86850; 86900; 86901; Q9967